=== PATIENT | male | born 2000 | race Asian ===

== ENCOUNTER 2022-09-20 23:11 | Emergency (ER) | payer OTHER, SELFPAY ==
[2022-09-20 23:20] VITALS: BP 106/84; PULSE 129; RESP 22; TEMP 37; O2SAT 97; BMI 26.1
--- NOTE | 2022-09-20 23:45 | CT_ITS ---
[facility] [id number] Patient Name: DEB MOYER MRN: [id number] date: 2000 Sex: M Assigned Patient Location: ED.MAIN Current Patient Location: ER Accession/Order Number: [id number] Exam Date: 09/20/2022 23:59 Report Date: 09/21/2022 01:54 At the request of: VIKTOR HORNE Procedure: CT abdomen pelvis wo con EXAM: CT abdomen pelvis wo con HISTORY: abdominal pain fever and vomiting. COMPARISON: CT abdomen 02/01/2020 TECHNIQUE: Multiple axial views CT abdomen pelvis without IV contrast. Coronal sagittal reformats. FINDINGS: Visualized lung bases demonstrate mild left lower lung linear atelectasis. Visualized cardiac apex is unremarkable. Severe hepatic steatosis and hepatomegaly. Liver measures 23 cm craniocaudal length. Gallbladder, pancreas, spleen, adrenal glands, kidneys, urinary bladder, and appendix are unremarkable. Prostate measures 2.6 cm transverse diameter. Moderate amount of stool within the sigmoid. Mild ascending and descending colonic wall thickening. No evidence for small bowel obstruction, large ascites, or free air. No pericolonic inflammatory stranding. No acute bony abnormality. Remote right L5 pars defect. CT/CT abdomen pelvis wo con IMPRESSION: Severe hepatic steatosis and hepatomegaly. Mild ascending and descending colonic wall thickening. No pericolonic inflammatory stranding. Finding could reflect sequela of recent or prior colonic inflammation. Correlate clinically. Appendix is unremarkable. Electronically authenticated by: LIZ HOOD Date: 09/21/2022 01:54
--- NOTE | 2022-09-20 23:45 | XR_ITS ---
[facility] [id number] Patient Name: DEB MOYER MRN: [id number] date: 2000 Sex: M Assigned Patient Location: ED.MAIN Current Patient Location: ER Accession/Order Number: [id number] Exam Date: 09/20/2022 23:59 Report Date: 09/21/2022 01:47 At the request of: VIKTOR HORNE Procedure: XR chest 1V EXAM: XR chest 1V HISTORY: dyspnea COMPARISON: None available TECHNIQUE: Single frontal view chest x-ray FINDINGS: Mild left lower retrocardiac lung streaky opacities. No large pleural effusions, pneumothorax, or acute bony abnormality. Cardiac size is unremarkable. XR/XR chest 1V IMPRESSION: Mild left lower retrocardiac lung streaky opacities reflect atelectasis, less likely infiltrates. Correlate clinically. Electronically authenticated by: LIZ HOOD Date: 09/21/2022 01:47
--- NOTE | 2022-09-20 23:46 | ED.ABDPAIN1 ---
HPI - Abdominal Pain General Chief Complaint: Abdominal Pain Stated Complaint: ABDOMINAL PAIN, VOMITING, FEVER Time Seen by Provider: 09/20/22 23:30 Source: family Mode of arrival: walk-in Limitations: other Limitations comment: MRDD History of Present Illness HPI narrative: 22 male with history of Down's syndrome. MRDD. patient not able to provide any history . Parents states he was breathing fast at home. He then had some abdominal pain RLQ. Enroute to the hospital he vomited. They returned home to clean him up and then brought him back. They admit he is not breathing abnormal at this time but feel his breathing was related to his pain. No fever or cough Related Data Home Medications Medication Instructions Recorded Confirmed levothyroxine 75 mcg tablet mcg 09/20/22 sertraline 50 mg tablet mg 09/20/22 Allergies Allergy/AdvReac Type Severity Reaction Status Date / Time No Known Drug Allergies Allergy Verified 09/20/22 23:20 Review of Systems ROS Status of ROS unobtainable due to mental status Exam Constitutional Vital Signs, click to edit/add: Last Vital Signs Temp 98.6 F 09/20/22 23:20 Pulse 124 H 09/21/22 02:13 Resp 20 09/21/22 02:13 BP 100/72 09/21/22 02:19 Pulse Ox 97 09/21/22 02:13 O2 Del Method Room Air 09/21/22 02:13 Common normals: no apparent distress (he is awake. will make eye contact but not able to communicate as his base.) Other: patient resist any attempt by nursing to establish IV HENMT Common normals: normocephalic and head/scalp atraumatic Eye Common normals: EOMs intact bilaterally and conjunctivae normal Respiratory Common normals: normal respiratory effort, no retractions, no use of accessory muscles and clear to auscultation bilaterally Cardio Common normals: regular rate, regular rhythm, S1 normal heart sound and S2 normal heart sound GI Common normals: non-tender Extremity Common normals: normal to inspection and no joint enlargement Neuro Common normals: moves all extremities and no focal motor deficits Course Vital Signs Vital signs: Vital Signs Temperature 98.6 F 09/20/22 23:20 Pulse Rate 129 H 09/20/22 23:20 Respiratory Rate 22 09/20/22 23:20 Blood Pressure 106/84 09/20/22 23:20 Pulse Oximetry 97 09/20/22 23:20 Oxygen Delivery Method Room Air 09/20/22 23:20 Temperature 98.6 F 09/20/22 23:20 Pulse Rate 124 H 09/21/22 02:13 Respiratory Rate 20 09/21/22 02:13 Blood Pressure 100/72 09/21/22 02:19 Pulse Oximetry 97 09/21/22 02:13 Oxygen Delivery Method Room Air 09/21/22 02:13 MDM - Abdominal Pain MDM Narrative Medical decision making narrative: patient presents with reported dyspnea and abdominal pain. No dyspnea or abdominal findings on arrival to the ER. CT of the abdomen with constipation and comments about mild colonic wall thickening without stranding. Patient afebrile. His abdomen is nontender. Exam was repeated and remains nontender. Parents informed of the finding including hepatomegaly. Patient is tachycardic. Parents unaware if he is normally tachycardic. We are not able to give IV fluids as he is completely against placement of IV. Parents informed that he will need to drink plenty of fluids. His BP remains stable. Will treat possible colitis with Augmentin. Parents with manage constipation and follow up with his doctor regarding hepatic fatty liver and hepatomegaly. also recommended follow up in one day due to his tachycardia as it is not clear to the cause given his benign presentation and parents not knowing if this is chronic Discharge Plan Discharge Chief Complaint: Abdominal Pain Clinical Impression: Colitis, Constipation Patient Disposition: Home, Self-Care Time of Disposition Decision: 02:25 Prescriptions / Home Meds: No Action levothyroxine 75 mcg tablet sertraline 50 mg tablet Instructions: Constipation (ED), Colitis (ED) Additional Instructions: drink plenty of fluids. Follow up with family doctor tomorrow . needs to have heart rate and blood pressure rechecked Stand Alone Forms: Portal Instructions Referrals: TATIANA GAONA [Primary Care Provider] - 1 week Discharge Date/Time: 09/21/22 02:33
[2022-09-21 02:13] VITALS: PULSE 124; RESP 20; O2SAT 97
[2022-09-21 02:19] VITALS: BP 100/72
== END 2022-09-21 02:33 | disposition home or self-care (01) ==
PROVIDERS: Emergency Provider Internal Medicine; PCP Family Medicine
DX: K59.00 Constipation, unspecified (principal); K52.9 Noninfective gastroenteritis and colitis, unspecified; Q90.9 Down syndrome, unspecified; F79 Unspecified intellectual disabilities; Z79.899 Other long term (current) drug therapy; Z79.890 Hormone replacement therapy
CPT/HCPCS: 71045; 74176; 99284